=== PATIENT | female | born 1945 | race Caucasian/White ===

== ENCOUNTER 2018-06-08 06:17 | Day surgery (SDC) | payer OTHER ==
[~2018-06-08 06:17] MED LIST: POLY119PG PO; SURFAK240 M1 PO; SYNTHROID137 MCG PO; ULTRACET PO; VERAPAMIL ER240 MG PO; ZESTRIL40 M1 PO; [UNRECOGNIZED DRUG - OTHER] PO
[2018-06-08] MEDS ORDERED: PERCOCET 5-3251 EACH PO (11:11)
[2018-06-08] MEDS ORDERED: COLACE100 MG PO (11:11)
== END 2018-06-08 15:05 | disposition home or self-care (01) ==
LOC: CIR.AMB 06:17
DX: K62.0 Anal polyp (principal)

== ENCOUNTER 2022-09-02 10:01 | Outpatient (CLI) | payer OTHER ==
[~2022-09-02 10:01] MED LIST changes: +COLACE100 MG PO; +PERCOCET 5-3251 EACH PO
== END 2022-09-02 10:09 | disposition home or self-care (01) ==
LOC: SONOGRAMA 10:01
PROVIDERS: ATTEND Surgery
DX: N62 Hypertrophy of breast (principal); N60.32 Fibrosclerosis of left breast

== ENCOUNTER 2022-09-28 09:36 | Outpatient (CLI) | payer OTHER | END 2022-09-28 09:41 | disposition home or self-care (01) | LOC: TOM 09:36 | DX: Z86.010 Personal history of colon polyps (principal); Z80.0 Family history of malignant neoplasm of digestive organs ==